=== PATIENT | male | born 1980 | race African-American/Black ===

== ENCOUNTER 2018-03-29 13:42 | Emergency (ER) | payer BC ==
[~2018-03-29] VITALS: Ht 190.5 cm; Wt 133.0 kg
[2018-03-29] MEDS ORDERED: KETOROLAC 60MG/2ML VIAL IM ONE (14:15)
[2018-03-29 14:30] VITALS: BP 130/79
== END 2018-03-29 14:40 | disposition home or self-care (01) ==
LOC: ER 14:00
DX: S20.219A Contusion of unspecified front wall of thorax, initial encounter (principal); V43.52XA Car driver injured in collision with other type car in traffic accident, initial encounter; W22.11XA Striking against or struck by driver side automobile airbag, initial encounter; Y93.89 Activity, other specified; Y92.488 Other paved roadways as the place of occurrence of the external cause
CPT/HCPCS: 96372; 99283; J1885